=== PATIENT | female | born 1960 | race Caucasian/White ===

== ENCOUNTER → 2019-07-14 | Outpatient (CLI) | payer BC, OTHER | LOC: NUC 12:58 | DX: Z13.6 Encounter for screening for cardiovascular disorders (principal); M81.0 Age-related osteoporosis without current pathological fracture; I25.10 Atherosclerotic heart disease of native coronary artery without angina pectoris; E78.00 Pure hypercholesterolemia, unspecified; N91.2 Amenorrhea, unspecified; Z78.0 Asymptomatic menopausal state ==

== ENCOUNTER → 2019-08-01 | Outpatient (CLI) | payer BC, OTHER ==
[~2019-08-01] MED LIST: ASA81BEC PO; CALCIUM500 M1 PO; DITROPAN XL10 M1 PO; ROSUVASTATIN CA20 MG PO; VITAMIN D250 MCG PO
== END ==
LOC: SJCVCIMAG 10:14
DX: R94.39 Abnormal result of other cardiovascular function study (principal); R94.31 Abnormal electrocardiogram [ECG] [EKG]; R93.1 Abnormal findings on diagnostic imaging of heart and coronary circulation; R53.83 Other fatigue; E78.2 Mixed hyperlipidemia; R68.89 Other general symptoms and signs; Z79.82 Long term (current) use of aspirin; Z79.899 Other long term (current) drug therapy; Z87.891 Personal history of nicotine dependence; Z82.49 Family history of ischemic heart disease and other diseases of the circulatory system

== ENCOUNTER → 2019-08-07 | Outpatient (CLI) | payer BC, OTHER | LOC: SJCVCIMAG 14:06 | DX: I65.23 Occlusion and stenosis of bilateral carotid arteries (principal); Z87.891 Personal history of nicotine dependence ==

== ENCOUNTER → 2019-08-08 | Outpatient (CLI) | payer BC, OTHER ==
[~2019-08-08] VITALS: Ht 162.6 cm; Wt 91.3 kg
[2019-08-08 07:25] VITALS: BP 141/88
--- NOTE | 2019-08-08 08:33 | EKG ---
[facility] [place] [address] ELECTROCARDIOGRAM REPORT Name: DILLAN VILLEDA Room #: REG [facility]#: [id number] Admission: 08/08/19 Attend Phys: Orion Herron MD, Discharge: Date of : 56 Report #: [id number] THIS REPORT FOR: cc: Bladimir Liang MD, Neal A. 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
--- NOTE | 2019-08-18 17:57 | CATHLAB ---
[facility] [place] [address] INVASIVE PROCEDURE REPORT Name: DILLAN VILLEDA Room #: REG [facility]#: [id number] Admission: 08/08/19 Attend Phys: Orion Herron MD, Discharge: Date of : 56 Report #: [id number] THIS REPORT FOR: cc: Bladimir Liang MD, Neal A. MD Mancuso, Gerald M. MD [facility] ~ APPROVED REPORT Study performed: 08/08/2019 09:21:05 Patient Details Patient Status: Out-Patient Room #: The patient is a 58 year-old female Event Personnel Orion Herron Project Superintendent, Emilia Laureano RTR, BOOK SORTER Monitor, Elana Hinds RN RN, Tera Diaz Scrhudson Procedures Performed Art Access - R femoral artery* Left Heart Cath w/or w/o Coronaries [id number] [facility] Abdominal Aortography [id number] Initial Mod Sed Same Phys/QHP Gr5y [id number] Indication Positive stress test Procedure Narrative The Right Groin^ was infiltrated with 1% Lidocaine subcutaneous anesthesia. A PINNACLE 6FR Sheath #[id number] sheath was inserted into the RFA^. Coronary angiography was performed using coronary diagnostic catheters. The right coronary system was accessed and visualized with a JR4 catheter. The left coronary system was accessed and visualized with a JL4 catheter. The left ventricle was accessed and visualized with a PIGTAIL catheter. Left ventriculogram was performed in 30 degree projection. An aortogram of the abdominal aorta was performed. Pre-demployment femoral angiogram was performed . Closure device was deployed with a 6 Fr MYNXGRIP 6/7F #[id number]. The patient tolerated the procedure well and there were no complications associated with the procedure. There was no hematoma. Intraoperative Conscious Sedation Sedation start time: 09:55 Case end Time: 10:18 [facility], [place] [address] INVASIVE PROCEDURE REPORT Name: VILLEDADILLAN Room #: [facility]#: [id number] Admission: 08/08/19 Attend Phys: Orion Herron, Discharge: Date of : 56 Report #: [id number] Fentanyl 50 mcg Versed 1 mg Fluoro Time: 2.31 minutes Dose: DAP 3152.00 cGycm2 388 mGy Contrast Type and Amount: Omnipaque 90 ml Hemodynamics The aortic pressure is 122/58 mmHg with a mean of 83 mmHg. The left ventricular pressure is 117/13 mmHg with a mean of mmHg. The left ventricular end diastolic pressure is 19 mmHg. Conclusion 1. Normal left jugular size and systolic function EF 60% #2 abdominal aortogram is normal in caliber no evidence of aneurysm renal arteries widely patent #3 essentially normal coronary anatomy in a codominant system and a wraparound LAD. No occlusive disease is noted the distal vessels are small and somewhat attenuated. Recommendations and plan: Continue aggressive risk factor modification. There is no indication for coronary intervention. <ELECTRONICALLY SIGNED> By: Orion Herron MD, [facility] 08/18/191755 55 55 Orion Herron MD, FAC /INF
== END | disposition home or self-care (01) ==
LOC: CATH 06:41
DX: R94.39 Abnormal result of other cardiovascular function study (principal); E78.5 Hyperlipidemia, unspecified; Z82.49 Family history of ischemic heart disease and other diseases of the circulatory system; Z98.890 Other specified postprocedural states; Z79.899 Other long term (current) drug therapy; Z87.891 Personal history of nicotine dependence; Z79.82 Long term (current) use of aspirin